=== PATIENT | female | born 1985 | race Caucasian/White ===

== ENCOUNTER 2020-08-22 09:19 | Outpatient (CLI) | payer OTHER | END 2020-08-22 09:20 | disposition home or self-care (01) | LOC: CTENTCT 09:19 | PROVIDERS: ATTEND Otolaryngology Plastic Surgery within the Head & Neck | DX: J32.8 Other chronic sinusitis (principal) | CPT/HCPCS: 70486 ==

== ENCOUNTER 2021-05-30 07:54 | Outpatient (CLI) | payer OTHER ==
[2021-05-30 10:18] LABS: BHCG - Serum Negative (NEGATIVE); Pregs Control Background? CLEAR/WHITE (CLR/WHITE); Pregs Control Bar Appear? YES (CONTROL BAR)
[2021-05-30 21:10] LABS: SARS-CoV-2 PCR by NAA Not Detected (NotDetected)
== END 2021-05-30 07:55 | disposition home or self-care (01) ==
LOC: LABBT 07:54
PROVIDERS: ATTEND Otolaryngology Plastic Surgery within the Head & Neck
DX: Z01.812 Encounter for preprocedural laboratory examination (principal); J32.0 Chronic maxillary sinusitis; J32.1 Chronic frontal sinusitis; J32.2 Chronic ethmoidal sinusitis; J34.2 Deviated nasal septum; J34.3 Hypertrophy of nasal turbinates; J30.9 Allergic rhinitis, unspecified; J34.89 Other specified disorders of nose and nasal sinuses; R06.83 Snoring; Z20.822 Contact with and (suspected) exposure to COVID-19
CPT/HCPCS: 84703; 85014; U0003; U0005

== ENCOUNTER 2021-06-04 06:57 | Day surgery (SDC) | payer OTHER ==
[2021-06-03 09:05] VITALS: BMI 35.4
[2021-06-04] MEDS ORDERED: AFRIN NASAL MIST 15 ML BOT ONE ×2 (07:43→08:24)
[2021-06-04] MEDS ORDERED: Lidocaine 1% w/Epinephrine 1:100K 20 ML VIAL ONE (08:23)
[2021-06-04] MEDS ORDERED: Bacitracin Zinc Ointment 30 gm TUBE ONE (08:24)
[2021-06-04] MEDS ORDERED: Fentanyl 100 MCG/2 ML VIAL ONE ×4 (08:32→09:48)
[2021-06-04] MEDS ORDERED: Rocuronium Bromide 10 MG/ML (10ML VIAL) ONE (08:36)
[2021-06-04] MEDS ORDERED: Lidocaine 1% PF 5 ML VIAL ONE (08:36)
[2021-06-04] MEDS ORDERED: Glycopyrrolate 0.2 MG/ML 5 ML SYRINGE ONE (08:36)
[2021-06-04] MEDS ORDERED: Ondansetron PF 4 MG/2 ML Vial ONE ×2 (08:36→11:12)
[2021-06-04] MEDS ORDERED: PROPOFOL 200 MG/20 ML VIAL ONE (08:36)
[2021-06-04] MEDS ORDERED: Dexamethasone 20 MG/5 ML VIAL ONE (08:36)
[2021-06-04] MEDS ORDERED: HYDROcodone/Acetaminophen 5/325 mg Tablet ONE (10:37)
== END 2021-06-04 12:03 | disposition home or self-care (01) ==
LOC: SDC 06:57
PROVIDERS: ATTEND Otolaryngology Plastic Surgery within the Head & Neck
PROC: 099S8ZZ Drainage of Right Frontal Sinus, Via Natural or Artificial Opening Endoscopic (ICD-10-PCS; principal; 2021-06-04)
PROC: 09TV8ZZ Resection of Left Ethmoid Sinus, Via Natural or Artificial Opening Endoscopic (ICD-10-PCS; principal; 2021-06-04)
PROC: 099T8ZZ Drainage of Left Frontal Sinus, Via Natural or Artificial Opening Endoscopic (ICD-10-PCS; principal; 2021-06-04)
PROC: 099Q8ZZ Drainage of Right Maxillary Sinus, Via Natural or Artificial Opening Endoscopic (ICD-10-PCS; principal; 2021-06-04)
PROC: 099R8ZZ Drainage of Left Maxillary Sinus, Via Natural or Artificial Opening Endoscopic (ICD-10-PCS; principal; 2021-06-04)
PROC: 09TU8ZZ Resection of Right Ethmoid Sinus, Via Natural or Artificial Opening Endoscopic (ICD-10-PCS; principal; 2021-06-04)
PROC: 09TL8ZZ Resection of Nasal Turbinate, Via Natural or Artificial Opening Endoscopic (ICD-10-PCS; principal; 2021-06-04)
PROC: 09SM0ZZ Reposition Nasal Septum, Open Approach (ICD-10-PCS; principal; 2021-06-04)
DX: J32.8 Other chronic sinusitis (principal); J34.2 Deviated nasal septum; J34.3 Hypertrophy of nasal turbinates; J30.9 Allergic rhinitis, unspecified; J34.89 Other specified disorders of nose and nasal sinuses
CPT/HCPCS: J1100; J2405; J2704; J3010

== ENCOUNTER 2022-05-11 17:00 | Outpatient (CLI) | payer BC | END 2022-05-11 17:01 | disposition home or self-care (01) | LOC: SLEEPLAB 17:00 | PROVIDERS: ATTEND Otolaryngology Plastic Surgery within the Head & Neck | DX: G47.33 Obstructive sleep apnea (adult) (pediatric) (principal); R53.83 Other fatigue; E66.9 Obesity, unspecified; R06.83 Snoring; F41.9 Anxiety disorder, unspecified; G47.00 Insomnia, unspecified; Z68.35 Body mass index [BMI] 35.0-35.9, adult | CPT/HCPCS: 95800 ==

== ENCOUNTER 2023-06-24 11:30 | Outpatient (CLI) | payer BC | END 2023-06-24 11:31 | disposition home or self-care (01) | LOC: SCSMRI 11:30 | PROVIDERS: ATTEND Orthopaedic Surgery | DX: M67.813 Other specified disorders of tendon, right shoulder (principal); M75.111 Incomplete rotator cuff tear or rupture of right shoulder, not specified as traumatic ==